=== PATIENT | female | born 1965 | race Caucasian/White ===

== ENCOUNTER 2017-12-05 23:15 | Emergency (ER) ==
[2017-12-05 23:25] VITALS: BP 120/81; TEMP 96.1; BMI 35.8
--- NOTE | 2017-12-05 23:36 | ED.PDOC ---
General ED Provider: Dr. TYREE ULLOA Chief Complaint: Laceration Stated Complaint: Patient state she sustained an injury to the left ankle area at home not sure from what. Had some bleeding that was controlled. She admits to Drinking some ETOH tonight. Time Seen by Physician: 23:34 Mode of Arrival: Walk-In Information Source: Patient Primary Care Provider: PIPER REYES Nursing and Triage Documentation Reviewed and Agree: Yes Reviewed sepsis parameters & appropriate labs ordered?: No System Inflammatory Response Syndrome: Not Applicable Sepsis Protocol: For patient's 13 years and over: Temp is 96.8 and below OR 101 and greater Pulse >90 BPM Resp >20/minute Acutely Altered Mental Status Are patient's symptoms suggestive of a new infection, such as: -Pneumonia -Skin, Soft Tissue -Endocarditis -UTI -Bone, Joint Infection -Implantable Device -Acute Abdominal Infection -Wound Infection -Meningitis -Blood Stream Catheter Infection -Unknown Review of Systems - Review Of Systems Constitutional: Reports: No symptoms Eyes: Reports: No symptoms Ears, Nose, Mouth, Throat: Reports: No symptoms Respiratory: Reports: No symptoms Cardiac: Reports: No symptoms GI: Reports: No symptoms : Reports: No symptoms Musculoskeletal: Reports: Joint pain Skin: Reports: Bruising, Other (Left ankle laceration) Neurological: Reports: No symptoms Endocrine: Reports: No symptoms Hematologic/Lymphatic: Reports: No symptoms All Other Systems: Reviewed and Negative Past Medical History - Past Medical History Previously Healthy: Yes Endocrine: Reports: None Cardiovascular: Reports: None Respiratory: Reports: None Hematological: Reports: None Gastrointestinal: Reports: None Genitourinary: Reports: None Neuro/Psych: Reports: None Musculoskeletal: Reports: None Cancer: Reports: None Last Menstrual Period: UNKNOWN - Surgical History General Surgical History: Reports: (x2 ) - Family History Family History: Reports: Unknown - Social History Smoking Status: Current every day smoker, Light tobacco smoker Hx Substance Use: No Alcohol Screening: Occasionally - Immunizations Tetanus Shot up to Date: Yes Physical Exam - Physical Exam Appearance: Ill-appearing, Obese Pain Distress: Moderate Neck: Supple Musculoskeletal: Normal strength Skin: Warm, Dry Neurological: Alert, Oriented Psychiatric: Anxious Interpretation - Radiology Interpretation Radiology Interpretation By: ED Physician Radiology Results: Negative Exam Interpreted: Other (ankle x ray ) Procedures - Laceration/Wound Repair Left ankle Wound Description: Linear, Irregular, Flap, Stellate, Nail-avulsed, Skin tear, Joint proximity, Other Wound Length (cm): 4.5 Wound Width: 0.5 Wound Depth: 0.3 Wound Explored: Clean Wound Irrigated: Yes Wound Prep: Hibiclens Anesthesia: Lidocaine Wound Repaired With: Sutures Suture Size and Type: Ethlone 3.0 Number of Sutures: 7 (simple interupped ) Layer Closure?: No Sterile Dressing Applied?: Yes Splint Applied?: No Sling Applied?: No Progress: Tolerated well Critical Care Note - Critical Care Note Total Time (mins): 0 Course - Course Orders, Labs, Meds: Orders Category Date Time Status Wound [ED WOUND CARE] .ONCE EMERGENCY 12/05/17 23:33 Active Diphth,Pertuss(Acell),Tet Vac [Boostrix] MEDS 12/05/17 23:32 Discontinued 0.5 ml IM .ONCE ONE Lidocaine HCl/Pf [Lidocaine HCl 1% Sdv] MEDS 12/05/17 23:32 Discontinued 5 ml SUBCUT ONCE STA ANKLE, LEFT MIN 3 VIEWS Stat RADS 12/05/17 23:35 Completed Medications Discontinued Medications Generic Name Dose Route Start Last Admin Trade Name Freq PRN Reason Stop Dose Admin Diphtheria/Pertussis/Tetanus Vacc 0.5 ml 12/05/17 23:32 12/05/17 23:39 Boostrix IM 12/05/17 23:33 0.5 ml .ONCE ONE Administration Lidocaine HCl 5 ml 12/05/17 23:32 Lidocaine Hcl 1% Sdv SUBCUT 12/05/17 23:33 ONCE STA Vital Signs: Temp Pulse Resp BP Pulse Ox 12/05/17 23:16 96.1 F L 81 20 120/81 95 Departure - Departure Time of Disposition: 00:37 Disposition: HOME SELF-CARE Discharge Problem: Laceration - injury Instructions: Diphtheria/Acellular Pertussis/Tetanus Vaccine (By injection) Condition: Stable Pt referred to PMD for follow-up: Yes IPMP verified?: No Additional Instructions: Follow up with PCP in 7-10 days Keep area clean and Dressed Twice a day Report or return any signs of infection No swimming for 10 days No running, jumping or strenuous activity as you could rupture your Achilles tendon Allergies/Adverse Reactions: Allergies BANDAID Adverse Reaction (Uncoded 12/05/17 23:26) Home Medications: Ambulatory Orders 1 [No Reported Medications] 12/05/17 Disposition Discussed With: Patient, Family
[2017-12-05] MEDS: BOOSTRIX IM ONE (23:39)
--- NOTE | 2017-12-06 00:07 | DI ---
Exam: Left ankle three-view History: Trauma and pain Findings / impression: Laceration suspected over the Achilles tendon. No radiopaque foreign body is seen. Cannot exclude partial disruption of the Achilles tendon. There is a 7.6 mm spurring of the pl hemant surface of the calcaneus. Achilles surface spurring measuring less than 3 mm. No acute bony a bnormalities.
[2017-12-06] MEDS: LIDOCAINE HCL 1% SDV SUBCUT STA ×2 (00:15)
== END 2017-12-06 00:57 | disposition home or self-care (01) ==
LOC: ED 23:15
DX: S91.012A Laceration without foreign body, left ankle, initial encounter (principal); W45.8XXA Other foreign body or object entering through skin, initial encounter; F17.210 Nicotine dependence, cigarettes, uncomplicated
CPT/HCPCS: 90471; 90715; 99283

== ENCOUNTER 2017-12-10 23:05 | Emergency (ER) ==
[2017-12-10 23:20] VITALS: BP 131/90; TEMP 98.1; BMI 36.8
--- NOTE | 2017-12-10 23:32 | ED.PDOC ---
General ED Provider: Dr. JM BHAGAT Chief Complaint: Chest Wall Injury/Pain Stated Complaint: Patient Injure the left side ribs 2 weeks, ago, again she fell and injured on Thursday, ever since hurting to move and bend,. today the pain is worse so came for the f/u Time Seen by Physician: 23:35 Mode of Arrival: Ambulance Information Source: Patient Primary Care Provider: PIPER REYES Nursing and Triage Documentation Reviewed and Agree: Yes Reviewed sepsis parameters & appropriate labs ordered?: Yes System Inflammatory Response Syndrome: Not Applicable Sepsis Protocol: For patient's 13 years and over: Temp is 96.8 and below OR 101 and greater Pulse >90 BPM Resp >20/minute Acutely Altered Mental Status Are patient's symptoms suggestive of a new infection, such as: -Pneumonia -Skin, Soft Tissue -Endocarditis -UTI -Bone, Joint Infection -Implantable Device -Acute Abdominal Infection -Wound Infection -Meningitis -Blood Stream Catheter Infection -Unknown Cardiovascular Complaint Exam - Chest Pain Complaint/Exam Onset: Gradual Symptoms Are: Still present Timing: Constant Initial Severity: Moderate Current Severity: Moderate Location: Reports: Midsternal, Lower sternal, Left anterior Pain Radiates: Reports: Back, Left shoulder Character: Reports: Aching, Tightness Aggravating: Reports: None Alleviating: Reports: None Associated Signs and Symptoms: Denies: Diaphoresis, Nausea, Vomiting, Fever, Palpitations, Cough, Hemoptysis, Back pain, Abdominal pain, Dizziness, Short of air, Calf pain, Calf swelling Related Surgical History: Reports: None History of Healthcare-Acquired Pneumonia: Reports: No AMI/ACS Risk Factors: Reports: None TAD Risk Factors: Reports: None Pulmonary Embolism Risk Factors: Reports: None Prior Care for this Complaint: No Recent Stress Test: No Recent Echo/LV Function: No JVD Present: No Subcutaneous Emphysema Present: No Diminshed Breath Sounds: No Reproducible Chest Wall Pain: Yes Bilateral Pulses Present: No Unequal Pulses Noted: No Differential Diagnoses: Chest Wall Pain Review of Systems - Review Of Systems Constitutional: Reports: No symptoms Eyes: Reports: No symptoms Ears, Nose, Mouth, Throat: Reports: No symptoms Respiratory: Reports: No symptoms Cardiac: Reports: Chest pain GI: Reports: No symptoms : Reports: No symptoms Musculoskeletal: Reports: No symptoms Skin: Reports: No symptoms Neurological: Reports: No symptoms Endocrine: Reports: No symptoms Hematologic/Lymphatic: Reports: No symptoms All Other Systems: Reviewed and Negative Past Medical History - Past Medical History Previously Healthy: Yes Endocrine: Reports: None Cardiovascular: Reports: None Respiratory: Reports: None Hematological: Reports: None Gastrointestinal: Reports: None Genitourinary: Reports: None Neuro/Psych: Reports: None Musculoskeletal: Reports: None Cancer: Reports: None Last Menstrual Period: UNKNOWN - Surgical History General Surgical History: Reports: (x2 ) - Family History Family History: Reports: Unknown - Social History Smoking Status: Current every day smoker, Light tobacco smoker Smoking Cessation Counseling Time: > 3 min - 10 min Hx Substance Use: No Alcohol Screening: Occasionally - Immunizations Tetanus Shot up to Date: Yes Physical Exam - Physical Exam Appearance: Well-appearing, No pain distress, Well-nourished, Obese Eyes: TAWNY, EOMI, Conjunctiva clear ENT: Ears normal, Nose normal, Oropharynx normal Respiratory: Airway patent, Breath sounds clear, Breath sounds equal, Respirations nonlabored Cardiovascular: RRR (lower sternal pain and left lower rib tender.), Pulses normal, No rub, No murmur GI/: Soft, Nontender, No masses, Bowel sounds normal, No Organomegaly Musculoskeletal: Normal strength, ROM intact, No edema, No calf tenderness Skin: Warm, Dry, Normal color Neurological: Sensation intact, Motor intact, Reflexes intact, Cranial nerves intact, Alert, Oriented Psychiatric: Affect appropriate, Mood appropriate Critical Care Note - Critical Care Note Total Time (mins): 30 Course - Course Orders, Labs, Meds: Orders Category Date Time Status Morphine Sulfate [Morphine 2 mg/ml Syringe] MEDS 12/11/17 00:05 Discontinued 2 mg IM ONCE STA Ondansetron HCl/Pf [Zofran 4 mg/2 ml] MEDS 12/11/17 00:05 Discontinued 4 mg IM ONCE STA CT CHEST W/O CONTRAST Stat RADS 12/10/17 23:22 Taken Medications Discontinued Medications Generic Name Dose Route Start Last Admin Trade Name Freq PRN Reason Stop Dose Admin Morphine Sulfate 2 mg 12/11/17 00:05 12/11/17 00:17 Morphine 2 Mg/Ml Syringe IM 12/11/17 00:06 2 mg ONCE STA Administration Ondansetron HCl 4 mg 12/11/17 00:05 12/11/17 00:16 Zofran 4 Mg/2 Ml IM 12/11/17 00:06 4 mg ONCE STA Administration Vital Signs: Temp Pulse Resp BP Pulse Ox 12/10/17 23:07 98.1 F 82 18 131/90 93 L KULWANT Risk Score KULWANT Risk Score: Risk Score Odds of by 30D 0 0.1 (0.1-0.2) 1 0.3 (0.2-0.3) 2 0.4 (0.3-0.5) 3 0.7 (0.6-0.9) 4 1.2 (1.0-1.5) 5 2.2 (1.9-2.6) 6 3.0 (2.5-3.6) 7 4.8 (3.8-6.1) Departure - Departure Time of Disposition: 00:13 Disposition: HOME SELF-CARE Discharge Problem: Chest wall contusion Qualifiers: Encounter type: initial encounter Laterality: left Qualified Code(s): S20.212A - Contusion of left front wall of thorax, initial encounter Instructions: Chest Wall Pain (ED) Condition: Stable Pt referred to PMD for follow-up: Yes IPMP verified?: No Additional Instructions: Rest Prescriptions: Hydrocodone/Acetaminophen [[place] 5-325 Tablet] 1 tab PO TID PRN #10 tablet PRN Reason: PAIN Allergies/Adverse Reactions: Allergies adhesive Adverse Reaction (Verified 12/10/17 23:16) BANDAID Adverse Reaction (Uncoded 12/10/17 23:16) Home Medications: Ambulatory Orders Hydrocodone/Acetaminophen [[place] 5-325 Tablet] 1 tab PO TID PRN #10 tablet 12/11 Disposition Discussed With: Patient, Family
[2017-12-11] MEDS ORDERED: MORPHINE 2 MG/ML SYRINGE IM STA (00:05)
[2017-12-11] MEDS ORDERED: ZOFRAN 4 MG/2 ML IM STA (00:05)
--- NOTE | 2017-12-11 00:36 | CT ---
Exam: CT of the chest without contrast History: Left chest and rib pain Technique: [address] of the chest without intravascular contrast FINDINGS: The lung windows show no pulmonary parenchymal abnormalities. No pleural fluid or pneumot horax. No rib fractures are seen on the right. Left anterolateral fourth, fifth, sixth nondisplaced rib fractures. No acute findings of the spine are sternum. No acute findings of the upper abdomen. Impression: 1. Left anterolateral fourth, fifth, sixth nondisplaced rib fractures. No acute findings of the [address] st otherwise.
== END 2017-12-11 00:53 | disposition home or self-care (01) ==
LOC: ED 23:05
DX: S20.212A Contusion of left front wall of thorax, initial encounter (principal); W19.XXXA Unspecified fall, initial encounter; F17.210 Nicotine dependence, cigarettes, uncomplicated
CPT/HCPCS: 96372; 99282

== ENCOUNTER 2018-03-26 21:13 | Emergency (ER) ==
[2018-03-26 21:21] VITALS: BP 123/80; TEMP 97.5; BMI 34.6
[2018-03-26] MEDS ORDERED: DILAUDID 2 MG/ML SDV IM STA (21:42)
--- NOTE | 2018-03-26 21:44 | ED.PDOC ---
General ED Provider: Dr. TYREE ULLOA Chief Complaint: Fall Stated Complaint: Fall with severe back pain that happened 1 week ago. She fell backwards 4 feet on to her back. The pain has gotten worse on the back now involving the left chest wall and left breast. Has pain with inspiration. Brace is helping Has had prior history of rib fractures. Time Seen by Physician: 21:44 Mode of Arrival: Walk-In Information Source: Patient Exam Limitations: No limitations Primary Care Provider: PIPER REYES Nursing and Triage Documentation Reviewed and Agree: Yes Does patient meet sepsis criteria?: No System Inflammatory Response Syndrome: Not Applicable Sepsis Protocol: For patient's 13 years and over: Temp is 96.8 and below OR 101 and greater Pulse >90 BPM Resp >20/minute Acutely Altered Mental Status Are patient's symptoms suggestive of a new infection, such as: -Pneumonia -Skin, Soft Tissue -Endocarditis -UTI -Bone, Joint Infection -Implantable Device -Acute Abdominal Infection -Wound Infection -Meningitis -Blood Stream Catheter Infection -Unknown Review of Systems - Review Of Systems Constitutional: Reports: No symptoms Eyes: Reports: No symptoms Ears, Nose, Mouth, Throat: Reports: No symptoms Respiratory: Reports: No symptoms Cardiac: Reports: No symptoms GI: Reports: No symptoms : Reports: No symptoms Musculoskeletal: Reports: Back pain Skin: Reports: No symptoms Neurological: Reports: Anxiety Endocrine: Reports: No symptoms Hematologic/Lymphatic: Reports: No symptoms All Other Systems: Reviewed and Negative Past Medical History - Past Medical History Previously Healthy: Yes Endocrine: Reports: None Cardiovascular: Reports: None Respiratory: Reports: None Hematological: Reports: None Gastrointestinal: Reports: None Genitourinary: Reports: None Neuro/Psych: Reports: None Musculoskeletal: Reports: Back Pain Cancer: Reports: None Last Menstrual Period: menopausal at 40 years old - Surgical History General Surgical History: Reports: (x2 ), Tonsillectomy - Family History Family History: Reports: Unknown - Social History Smoking Status: Current every day smoker, Light tobacco smoker Hx Substance Use: No Alcohol Screening: Occasionally - Immunizations Tetanus Shot up to Date: Yes (11/2017) Physical Exam - Physical Exam Appearance: Ill-appearing, Obese Ill-appearing: Moderate Pain Distress: Severe ENT: Ears normal, Nose normal, Oropharynx normal Neck: Supple Respiratory: Airway patent, Breath sounds clear, Respirations nonlabored Cardiovascular: RRR, Pulses normal, No rub, No murmur Musculoskeletal: Limited ROM Skin: Warm, Dry Neurological: Alert, Oriented Psychiatric: Anxious Critical Care Note - Critical Care Note Total Time (mins): 0 Course - Course Orders, Labs, Meds: Orders Category Date Time Status Ed After Hour Supply Med [Ed After Hours Supply Med MEDS 03/26/18 23:35 Discontinued Sent Home] 1 each PO ONCE ONE Hydrocodone Bit/Acetaminophen [Buford 7.5-325] MEDS 03/26/18 23:43 Discontinued 2 tab .ROUTE .STK-MED ONE Hydromorphone HCl [Dilaudid 1 mg/ml Syringe] MEDS 03/26/18 21:45 Discontinued 2 mg .ROUTE .STK-MED ONE Hydromorphone HCl [Dilaudid 2 mg/ml Sdv] MEDS 03/26/18 21:42 Discontinued 1.5 mg IM ONCE STA CT CHEST W/O CONTRAST Stat RADS 03/26/18 21:[address] LUMBAR SPINE W/O CONTRAST Stat RADS 03/26/18 21:[address] THORACIC SPINE W/O CONTRAST Stat RADS 03/26/18 21:43 Completed Medications Discontinued Medications Generic Name Dose Route Start Last Admin Trade Name Freq PRN Reason Stop Dose Admin Hydromorphone HCl 1.5 mg 03/26/18 21:42 03/26/18 21:49 Dilaudid 2 Mg/Ml Sdv IM 03/26/18 21:43 1.5 mg ONCE STA Administration Miscellaneous Information 1 each 03/26/18 23:35 03/27/18 00:03 Ed After Hours Supply Med Sent Home PO 03/26/18 23:36 1 each ONCE ONE Administration Protocol Vital Signs: Temp Pulse Resp BP Pulse Ox 03/26/18 21:14 97.5 F L 89 20 123/80 92 L Departure - Departure Time of Disposition: 23:37 Disposition: HOME SELF-CARE Discharge Problem: Chest wall pain Ribs, multiple fractures Qualifiers: Encounter type: initial encounter Fracture type: closed Laterality: left Qualified Code(s): S22.42XA - Multiple fractures of ribs, left side, initial encounter for closed fracture Instructions: Rib Fracture (ED), Thoracic Pain (ED) Condition: Stable Pt referred to PMD for follow-up: Yes IPMP verified?: No Additional Instructions: Take pain medications as prescribed Follow up with PCP in 3 days Prescriptions: Ibuprofen [Motrin] 600 mg PO Q6H PRN #30 tablet PRN Reason: Analgesia Oxycodone HCl/Acetaminophen [Percocet 7.5-325 mg Tablet] 1 each PO Q6H #28 tablet Allergies/Adverse Reactions: Allergies adhesive Adverse Reaction (Verified 03/26/18 21:21) BANDAID Adverse Reaction (Uncoded 03/26/18 21:21) Home Medications: Ambulatory Orders Ibuprofen [Motrin] 600 mg PO Q6H PRN #30 tablet 03/26/18 Oxycodone HCl/Acetaminophen [Percocet 7.5-325 mg Tablet] 1 each PO Q6H #28 tablet 03/26/18 Disposition Discussed With: Patient
[2018-03-26] MEDS ORDERED: DILAUDID 1 MG/ML SYRINGE ONE (21:45)
--- NOTE | 2018-03-26 22:42 | CT ---
EXAM: CT thoracic spine without intravenous contrast 03/26/2018. Sagittal and coronal reformatted i mages obtained HISTORY: Fall. Back pain COMPARISON: 12/10/2017 FINDINGS: Normal anatomic alignment is maintained. Vertebral bodies appear intact. The facet joint s align normally. There is no evidence of acute fracture. Multilevel chronic degenerative endplate change appears maddi lar to chest CT 12/10/2017. Multilevel anterior osteophyte formation. No bony encroachment on the spinal canal. IMPRESSION: 1. No acute osseous abnormality of the thoracic spine 2. Multiple partially visualized rib fractures. Please refer to report of CT chest for further disc ussion.
--- NOTE | 2018-03-26 22:49 | CT ---
Exam: CT lumbar spine without contrast History: Fall with severe back pain Technique: [address] lumbar spine with multiplanar reformations FINDINGS: The lumbar spine shows normal alignment. Vertebral body height is maintained. Disc space height is maintained. No fracture lines are suspicious bony lesions. Degenerative change. No imme diate paravertebral soft tissue abnormalities. The sacrum is intact. Impression: 1. Normal CT lumbar spine
--- NOTE | 2018-03-26 23:05 | CT ---
EXAM: CT chest without intravenous contrast 03/26/2018. Sagittal and coronal reformatted images obt ained HISTORY: Fall. Chest pain COMPARISON: 12/10/2017 FINDINGS: The heart size appears within normal limits. No pericardial effusion. Atelectasis and con solidation within the dependent aspect of both lungs. This is more extensive on the left. Small left pleural effusion. No pneumothorax. Chronic fracture at the anterior left fourth, fifth, sixth and seventh ribs. Callous formation is pre sent at these sites. Fracture is present within the left posterior seventh, eighth and ninth ribs. M inimal displacement. IMPRESSION: 1. Acute fracture of the left posterior seventh, eighth and ninth ribs. There is minimal displaceme nt. 2. Atelectasis/consolidation within the dependent aspect of both lower lobes. This is more extensiv e on the left. 3. Small left pleural effusion.
[2018-03-26] MEDS ORDERED: ED AFTER HOURS SUPPLY MED SENT HOME PO ONE (23:35)
[2018-03-26] MEDS ORDERED: NORCO 7.5-325 ONE (23:43)
== END 2018-03-26 23:59 | disposition home or self-care (01) ==
LOC: ED 21:13
DX: S22.42XA Multiple fractures of ribs, left side, initial encounter for closed fracture (principal); W17.89XA Other fall from one level to another, initial encounter; F17.210 Nicotine dependence, cigarettes, uncomplicated
CPT/HCPCS: 96372; 99282